=== PATIENT | male | born 1955 ===

== ENCOUNTER 2016-07-30 15:04 | Observation (INO) | payer BC, OTHER ==
[2016-07-30 15:07] VITALS: BMI 29.0
[2016-07-30] MEDS ORDERED: guaiFENesin 200 mg/10 ml Syrup UD PO STA (15:23)
[2016-07-30] MEDS ORDERED: Levalbuterol 1.25 MG/3 ML Inhal Soln UD IH STA (15:23)
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
--- NOTE | 2016-07-30 15:45 | RAD ---
HISTORY: Chest pain COMPARISON: No prior. FINDINGS: LUNGS: The lungs are hyperinflated and there is peribronchial thickening with chronic changes in both lungs. There is no focal consolidation PLEURA: No significant pleural effusion identified, no pneumothorax apparent. CARDIOVASCULAR: Normal. OSSEOUS STRUCTURES: No significant abnormalities. VISUALIZED UPPER ABDOMEN: Normal. OTHER FINDINGS: None. IMPRESSION: No active pulmonary disease. COPD.
[2016-07-30 16:25] LABS: ADD MANUAL DIFF? NO
[2016-07-30 16:31] LABS: BASO # 0.03 K/mm3 (0.0-2.0); BASO % 0.3 % (0.0-3.0); EOS # 0.1 (0.0-0.7); EOS % 1.4 % (1.5-5.0); GRAN # 5.51 (1.4-6.5); GRAN % 53.8 % (50.0-68.0); HEMATOCRIT 45.9 % (42.0-52.0); LYMPH # 3.6 (1.2-3.4); LYMPH % 35.5 % (22.0-35.0); MEAN CELL VOLUME 89.8 fL (80.0-105.0); MEAN CORPUSCULAR HEMOGLOBIN 31.1 pg (25.0-35.0); MEAN CORPUSCULAR HGB CONC 34.6 g/dl (31.0-37.0); MEAN PLATELET VOLUME 11.7 fl (7.0-11.0); MONO # 0.9 (0.1-0.6); PLATELET COUNT 165 10^3/uL (120.0-450.0); RED CELL DISTRIBUTION WIDTH 14.8 % (11.5-14.5); WHITE BLOOD COUNT 10.2 10^3/ul (4.5-11.0)
[2016-07-30 16:41] LABS: INR 1.02 (0.93-1.08); PARTIAL THROMBOPLASTIN TIME 30.3 Seconds (23.7-30.8)
[2016-07-30 16:58] LABS: ALKALINE PHOSPHATASE 74 U/L (38-133); ALT/SGPT 34 U/L (7-56); AST/SGOT 38 U/L (15-59); BILIRUBIN,TOTAL 0.7 mg/dL (0.2-1.3); BLOOD UREA NITROGEN 15 mg/dL (7-21); CALCIUM 8.9 mg/dL (8.4-10.5); CARBON DIOXIDE 24 mmol/L (21-33); CHLORIDE 107 mmol/L (98-107); CHOLESTEROL 202 mg/dL (130-200); GFR AFRICAN-AMERICAN > 60; GLUCOSE,RANDOM 90 mg/dL (70-110); LIPASE 38 U/L (23-300); MAGNESIUM 1.9 mg/dL (1.7-2.2); POTASSIUM 4.1 mmol/L (3.6-5.0); SODIUM 140 mmol/L (132-148); TOTAL PROTEIN 7.5 g/dL (5.8-8.3)
[2016-07-30 17:06] LABS: URINE BILIRUBIN NEGATIVE (NEGATIVE); URINE BLOOD MODERATE (NEGATIVE); URINE GLUCOSE (UA) NEGATIVE (NEGATIVE); URINE KETONE NEGATIVE (NEGATIVE); URINE LEUKOCYTE ESTERASE NEGATIVE Leu/uL (NEGATIVE); URINE PROTEIN NEGATIVE mg/dL (<30 mg/dL); URINE UROBILINOGEN 0.2 E.U./dL (<1 E.U./dL)
[2016-07-30 17:09] LABS: TROPONIN I < 0.01 ng/mL
[2016-07-30 17:17] LABS: URINE APPEARANCE CLEAR (CLEAR); URINE COLOR YELLOW (YELLOW)
[2016-07-30 17:19] LABS: URINE WBC 0 - 2 /hpf (0-6)
[2016-07-30 17:20] LABS: URINE BACTERIA NEG (NEG); URINE EPITHELIAL CELLS 0 - 2 /hpf (0-5)
[2016-07-30] MEDS ORDERED: Pneumococcal 23-Valent Vaccine IM ONE (23:12)
[2016-07-31 00:32] LABS: TROPONIN I < 0.01 ng/mL
[2016-07-31 00:50] VITALS: RESP 20
[2016-07-31 05:55] VITALS: BP 112/58; PULSE 65; TEMP 97.3; O2SAT 96
[2016-07-31 08:23] LABS: HEMATOCRIT 44.9 % (42.0-52.0); MEAN CELL VOLUME 89.4 fL (80.0-105.0); MEAN CORPUSCULAR HEMOGLOBIN 30.7 pg (25.0-35.0); MEAN CORPUSCULAR HGB CONC 34.3 g/dl (31.0-37.0); MEAN PLATELET VOLUME 11.8 fl (7.0-11.0); RED CELL DISTRIBUTION WIDTH 14.9 % (11.5-14.5); WHITE BLOOD COUNT 8.6 10^3/ul (4.5-11.0)
[2016-07-31 08:44] LABS: ALKALINE PHOSPHATASE 71 U/L (38-133); ALT/SGPT 31 U/L (7-56); AST/SGOT 22 U/L (15-59); BILIRUBIN,TOTAL 0.6 mg/dL (0.2-1.3); BLOOD UREA NITROGEN 14 mg/dL (7-21); CALCIUM 8.8 mg/dL (8.4-10.5); CARBON DIOXIDE 24 mmol/L (21-33); CHLORIDE 107 mmol/L (95-110); GFR AFRICAN-AMERICAN > 60; GLUCOSE,RANDOM 94 mg/dL (70-110); POTASSIUM 4.2 mmol/L (3.6-5.0); SODIUM 142 mmol/L (132-148); TOTAL PROTEIN 7.2 g/dL (5.8-8.3)
--- NOTE | 2016-07-31 08:57 | HP ---
I saw him on the floor at [facility] telemetry. He is resting comfortably in bed. He sl ept fairly well and he is telling me he wants to go home. He came in with a complaint of chest pain over 3 days, left-sided. He is not sure why he had it. He had no stress at work. He does smoke. Megan roberts did not know why it came or why it left because he does not have it right now. PAST MEDICAL HISTORY: High cholesterol. He had a runny nose when he came in, but no runny nose now. He is a smoker. No alcohol, no drugs. There is hypertension and diabetes in the family. ALLERGIES: No known drug allergies. He tells me he does not take any medications. He is 61 years old. There is hypertension in the family and diabetes with his father. No headaches, no blurred vision, no changes in vision, no changes in speech. No neck pain, no sore t hroat. A little bit of runny nose, but that is better this morning. He had a little bit of a cough. No shortness of breath. He has chest pain and palpitations and left-sided chest pain at times, sarah n at rest. It is gone now. He has no abdominal pain, nausea, vomiting, constipation. No problems u rinating. No back pain. No skin issues. No numbness or tingling. PHYSICAL EXAMINATION: VITAL SIGNS: He had a 98 temp, 77 pulse, 18 respiratory rate, 104/68 blood pressure, 99% O2 sat on r oom air. HEENT: His head is atraumatic, normocephalic. His extraocular muscles are intact. Pupils equal, re active to light. Throat is moist. NECK: Supple. HEART: Regular rate. Normal S1, S2. LUNGS: Decreased breath sounds bilaterally, but clear to auscultation. ABDOMEN: Soft, nontender, positive bowel sounds. No guarding, no rebound, no CVA tenderness. EXTREMITIES: Have no edema. NEUROLOGIC: GCS is 15. Cranial nerves II-XII grossly intact. Normal speech. SKIN: Warm and dry. PSYCHIATRIC: He is alert and oriented x 3. LYMPHATIC: Nonpalpable lymphadenopathy. Thyroid midline. He comes in with chest pain. LABORATORY DATA: He has a 140 sodium, potassium 4.1, BUN 15, creatinine 0.8, GFR is greater than 60, sugar is 90, calcium is 8.9, magnesium 1.9, total bili is 0.7, AST is 38, ALT is 34, alkaline phosph atase 74. Troponins are less than 0.01 and less than 0.01. Total protein 7.5, lipase is 38. Urine is negative. He has a chest x-ray, which showed clear to auscultation, COPD. He is a smoker and he is told not to smoke ever again. He is comfortable at this time. He wants to go home. I told him to wait for the roofing foreman and the rest of the labs to come back first before we can discharge him. Hopefully, this morning if the last troponin is negative, we can hook him up f or an outpatient stress test. He has a normal EKG. He is here for chest pain. He is in observation . He also has chronic obstructive pulmonary disease. He is a smoker. He should go home on a baby a spirin a day and not allowed to smoke anymore and follow up with cardiology for outpatient stress isabel t. Waiting for Dr. Hill. My plan is to discharge him later today. The patient had chest pain. Charles Bob DO cc: [id number] TT: 07/31/2016 08:57:11 en
--- NOTE | 2016-07-31 08:57 | CARD ---
APPROVED REPORT EKG Measurement Heart [id number] <Conclusion> Normal sinus rhythm Normal ECG
--- NOTE | 2016-07-31 10:03 | CON ---
DATE: 07/31/2016 CARDIOLOGY CONSULTATION HISTORY: The patient is a 61-year-old male who presents with a nondescript chest discomfort, which o ccurs equally at rest as well as during exertion. He had a similar episode several years ago, which was worked up by Dr. Harjinder Barajas with no cardiac implic ations. His symptoms are completely resolved. The patient was able to ambulate on the floor without symptoms. The patient's cardiac risk factors include a long history of smoking. In addition, he suffers from hypercholesterolemia in which he was prescribed medication, which he has not taken. Negative diabetes mellitus, negative hypertension. No previous cardiac history. SOCIAL HISTORY: He is an active smoker and works on [employer]. REVIEW OF SYSTEMS: A 14-point review of systems was reviewed. No cardiac symptomatology is noted. PHYSICAL EXAMINATION: GENERAL: The patient is in no acute distress. VITAL SIGNS: Blood pressure is 112/58. Heart rate is in the 60s. NECK: Negative JVD. LUNGS: Without rales. HEART: Reveals S1, S2. EXTREMITIES: Without edema. LABORATORIES: Troponins are negative x 2. LDL is 154. Hemoglobin is 15.4. The EKG shows no acute changes with right axis deviation. IMPRESSION: 1. Atypical chest pain. 2. No evidence for acute coronary syndrome. 3. Chronic obstructive pulmonary disease. 4. Hypercholesterolemia. 5. Need to rule out coronary artery disease. Given these findings, the patient will need a stress test. At the patient's request, he would like t o have it done electively as an outpatient later on this week. We will arrange for that. I have asked that the patient start a baby aspirin daily and start his statin therapy, which was pres cribed to him. I have discussed with him the importance of the need to stop smoking. Henok Hill MD cc: [id number] TT: 07/31/2016 09:39:01 Confirmation # [id number] Dictation # [id number] jn
--- NOTE | 2016-07-31 11:05 | DS ---
The patient came in for chest pain last night. He slept well. So far, all the troponins are negativ e. Waiting for Dr. Hill to see him to give his blessing to be discharged for an outpatient stress te st, most probably. He is told never to smoke again. PHYSICAL EXAMINATION: VITAL SIGNS: 97.3 temp, 65 pulse, 112/58 blood pressure, 20 respiratory rate, 96% O2 sat on room air . HEENT: Head is atraumatic, normocephalic. HEART: Regular rate. LUNGS: Clear to auscultation. ABDOMEN: Soft. EXTREMITIES: No edema. LABORATORY DATA: Last lab was a troponin, which was negative. Waiting for one more and Dr. Hill to see him. He will go home probably later today on a baby aspirin a day. He is also not allowed to smoke anymor e. Follow up with his primary care doctor. The patient is here for chest pain. He was in observati on. Charles Bob DO cc: [id number] TT: 07/31/2016 11:05:26 marley
== END 2016-07-31 10:11 | disposition home or self-care (01) ==
LOC: ED 15:04 → ERH 17:28 → 2RNO 20:40
PROVIDERS: ADMIT Family Medicine; ATTEND Family Medicine
DX: R07.89 Other chest pain (principal); J44.9 Chronic obstructive pulmonary disease, unspecified; F17.200 Nicotine dependence, unspecified, uncomplicated; E78.00 Pure hypercholesterolemia, unspecified
CPT/HCPCS: 36415; 71010; 80053; 80061; 81001; 82550; 83615; 83690; 83735; 84484; 85025; 85027; 85610; 85730; 93005; 99285; G0378

== ENCOUNTER 2016-08-12 07:16 | Day surgery (SDC) | payer BC ==
[2016-08-08 09:00] VITALS: BMI 28.4
[2016-08-12 07:46] LABS: ADD MANUAL DIFF? NO
[2016-08-12 07:52] LABS: BASO # 0.03 K/mm3 (0.0-2.0); BASO % 0.3 % (0.0-3.0); EOS # 0.2 (0.0-0.7); EOS % 1.9 % (1.5-5.0); GRAN # 3.93 (1.4-6.5); GRAN % 45.6 % (50.0-68.0); HEMATOCRIT 43.5 % (42.0-52.0); LYMPH # 3.7 (1.2-3.4); LYMPH % 42.9 % (22.0-35.0); MEAN CELL VOLUME 88.8 fL (80.0-105.0); MEAN CORPUSCULAR HEMOGLOBIN 31.2 pg (25.0-35.0); MEAN CORPUSCULAR HGB CONC 35.2 g/dl (31.0-37.0); MEAN PLATELET VOLUME 10.7 fl (7.0-11.0); MONO # 0.8 (0.1-0.6); MONO % 9.3 % (1.0-6.0); PLATELET COUNT 204 10^3/uL (120.0-450.0); RED CELL DISTRIBUTION WIDTH 14.1 % (11.5-14.5); WHITE BLOOD COUNT 8.6 10^3/ul (4.5-11.0)
[2016-08-12 07:57] LABS: BLOOD UREA NITROGEN 20 mg/dL (7-21); CALCIUM 8.8 mg/dL (8.4-10.5); CARBON DIOXIDE 26 mmol/L (21-33); CHLORIDE 105 mmol/L (95-110); GFR AFRICAN-AMERICAN > 60; GLUCOSE,RANDOM 91 mg/dL (70-110); POTASSIUM 4.2 mmol/L (3.6-5.0); SODIUM 140 mmol/L (132-148)
[2016-08-12 08:00] LABS: INR 0.99 (0.93-1.08); PARTIAL THROMBOPLASTIN TIME 27.3 Seconds (23.7-30.8)
[2016-08-12] MEDS ORDERED: Lidocaine 2% Inj (20ml) ONE (08:09)
[2016-08-12] MEDS ORDERED: Iodixanol 320 MG/ML 200 ML BOTTLE IV ONE (08:10)
[2016-08-12] MEDS ORDERED: Iodixanol 320 MG/ML 100 ML BOTTLE IV ONE (08:10)
[2016-08-12] MEDS ORDERED: Midazolam 2 MG/2 ML VIAL ONE ×2 (08:10→09:14)
[2016-08-12] MEDS ORDERED: Iohexol 350mgl/ml 50 ML ONE (08:10)
[2016-08-12] MEDS ORDERED: Phenylephrine 10 mg/ml Inj ONE (08:10)
[2016-08-12] MEDS ORDERED: Nitroglycerin 50mg in D5W 50 MG/250 ML BOTTLE IV ONE (08:11)
[2016-08-12] MEDS ORDERED: Sodium Chloride 0.9% 1,000 ML IV SCH (09:45)
--- NOTE | 2016-08-12 10:05 | CARDCATH ---
PROCEDURE DATE: 08/12/2016 HISTORY OF PRESENT ILLNESS: The patient is a 61-year-old male with multiple cardiac risk factors inc luding peripheral vascular disease, smoking and hypercholesterolemia who presents with chest pain. A stress test showed 2 areas of possible ischemia. Because of his cardiac risk factors, cardiac tao terization was recommended. PROCEDURE: Left heart catheterization with coronary angiography and left ventriculogram as well as a ortic root injection. The right femoral artery was cannulated with a 6-Malay sheath. There were no complications. The findings on catheterization revealed a left dominant circulation. The left main artery was unremarkable. The LAD revealed diffuse atherosclerosis with a 20-30% stenosis in the midportion. The diagonal vessels were free of significant disease. The circumflex artery was a large vessel and was dominant. The obtuse marginal branches were free of significant disease. The circumflex gave off the PDA which revealed intimal irregularities without critical lesions. In a ddition, it wrapped around to the right side of the heart and gave off a small RV branch. The right coronary artery was visualized on aortic flush and was found to be subtotally occluded. Th e RCA was a small vessel and nondominant vessel. LV function was measured in the PAREKH projection. In the PAREKH projection, wall motion is within normal limits. Estimated ejection fraction is 60%. Supra-aortic valvular injection revealed visualization of the subtotally occluded small nondominant R CA. Angio-Seal was used to close the femoral artery site. The patient tolerated the procedure well. IN SUMMARY: 1. 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 2. The circumflex artery was a large dominant vessel that wrapped around to the right side of the he art and gave off the right ventricular branch. 3. Left ventricular function is normal. Given these findings, the patient's treatment will be medical therapy including a strict cardiac risk reduction program which needs to include cessation of smoking. Peripheral vascular disease was note d on injection of the femoral arteries. Henok Hill MD cc: [id number] TT: 08/12/2016 10:04:45 mi
[2016-08-12 10:22] VITALS: TEMP 98.5
[2016-08-12] MEDS ORDERED: Bacitracin 500 Units/gm Oint Foilpak UD ONE (10:57)
[2016-08-12 12:22] VITALS: O2SAT 94
[2016-08-12 12:23] VITALS: RESP 18
[2016-08-12 13:27] VITALS: BP 108/68; PULSE 60
--- NOTE | 2016-08-12 15:38 | CARD ---
APPROVED REPORT EKG Measurement Heart [id number] <Conclusion> Sinus bradycardia with 1st degree AV block Otherwise normal ECG
== END 2016-08-12 15:50 | disposition home or self-care (01) ==
LOC: CATH 07:16
PROVIDERS: ATTEND Internal Medicine Cardiovascular Disease
DX: I25.10 Atherosclerotic heart disease of native coronary artery without angina pectoris (principal); I73.9 Peripheral vascular disease, unspecified; F17.210 Nicotine dependence, cigarettes, uncomplicated; E78.00 Pure hypercholesterolemia, unspecified; J44.9 Chronic obstructive pulmonary disease, unspecified
CPT/HCPCS: 36415; 80048; 85025; 85610; 85730; 86850; 86900; 93005; 93458; 93567; 99152; C1760; C1769; C2629; J1644; J2250; J3010; J7040; Q9967